=== PATIENT | female | born 1995 | race Caucasian/White ===

== ENCOUNTER 2017-05-21 07:42 | Inpatient (IN) | payer OTHER ==
[~2017-05-21] VITALS: Ht 167.6 cm; Wt 77.3 kg
[2017-05-21] MEDS ORDERED: OXYTOCIN 30U/ 0.9% NaCL 500ML 500 ML IV PRN (15:32)
[2017-05-21] MEDS ORDERED: OXYTOCIN 30U/ 0.9% NaCL 500ML 500 ML IV ONE (15:32)
[2017-05-21] MEDS ORDERED: D5%-LACTATED RINGERS 1,000 ML IV SCH (15:32)
[2017-05-21 15:37] VITALS: BP 126/76
[2017-05-21] MEDS ORDERED: CALCIUM CARBONATE 500 MG TAB.CHEW PO PRN (16:00)
[2017-05-21] MEDS ORDERED: FENTANYL PF 100 MCG/2ML IVPush PRN (16:00)
[2017-05-21] MEDS ORDERED: ONDANSETRON 2MG/ML, 2ML IVPush PRN (16:00)
[2017-05-21] MEDS ORDERED: PLEASE ENTER HEIGHT AND WEIGHT MC SCH (16:00)
[2017-05-21] MEDS ORDERED: FENTANYL PF 100 MCG/2ML IV PRN (16:00)
[2017-05-21] MEDS ORDERED: PREN1TAB10 PO (16:01)
[2017-05-21] MEDS ORDERED: LEVO50TA5 PO (16:01)
[2017-05-21 16:03] LABS: HEMATOCRIT 28.6 % (34.6-47.8); HEMOGLOBIN 9.4 g/dL (11.7-16.4); WHITE BLOOD COUNT 9.7 x10^3/uL (3.4-10)
[2017-05-21] MEDS ORDERED: OXYTOCIN 30U/ 0.9% NaCL 500ML 500 ML ONE ×2 (16:03→22:14)
[2017-05-21] MEDS ORDERED: NEWBORN KIT ONE (16:03)
[2017-05-21] MEDS ORDERED: LIDOCAINE 1%, 20ML ONE (16:03)
[2017-05-21] MEDS ORDERED: MISOPROSTOL 200 MCG TABLET ONE (16:03)
[2017-05-21] MEDS: LACTATED RINGERS 1,000 ML IV SCH ×2 (16:23→22:17)
[2017-05-21] MEDS ORDERED: FENTANYL PF 100 MCG/2ML ONE (19:47)
[2017-05-21] MEDS ORDERED: FENTANYL/BUPIV./NS/PF 250 ML EPIDCONT ONE (19:48)
[2017-05-21] MEDS ORDERED: BUPIVACAINE 0.25% ONE (19:48)
[2017-05-21] MEDS ORDERED: LIDOCAINE/PF 1.5%-EPI 1:200K, 30ML ONE (19:52)
[2017-05-21] MEDS ORDERED: TERBUTALINE 1 MG/ML, 1ML ONE (21:03)
[2017-05-21] MEDS: OXYTOCIN 30U/ 0.9% NaCL 500ML 500 ML IV SCH (22:17)
[2017-05-21] MEDS ORDERED: OXYcodone/APAP 5/325MG TABLET PO PRN (22:30)
[2017-05-21] MEDS ORDERED: ONDANSETRON 2MG/ML, 2ML IV PRN (22:30)
[2017-05-21] MEDS ORDERED: MISOPROSTOL 200 MCG TABLET PR PRN (22:30)
[2017-05-21] MEDS ORDERED: IBUPROFEN 600 MG TABLET ONE (22:49)
[2017-05-21] MEDS ORDERED: OXYcodone/APAP 5/325MG TABLET ONE (22:49)
[2017-05-21] MEDS: IBUPROFEN 600 MG TABLET PO PRN (23:01)
[2017-05-22 00:35] VITALS: BP 125/73
[2017-05-22] MEDS: DOCUSATE 100 MG CAPSULE PO PRN ×2 (01:27→07:46)
[2017-05-22] MEDS: OXYcodone/APAP 5/325MG TABLET PO PRN ×4 (03:40→20:37)
[2017-05-22 05:10] VITALS: BP 126/71
[2017-05-22 05:40] LABS: HEMATOCRIT 24.2 % (34.6-47.8); HEMOGLOBIN 7.9 g/dL (11.7-16.4); WHITE BLOOD COUNT 10.2 x10^3/uL (3.4-10)
[2017-05-22 07:34] VITALS: BP 111/69
[2017-05-22] MEDS: IBUPROFEN 600 MG TABLET PO PRN ×3 (07:46→20:37)
[2017-05-22] MEDS: OXYTOCIN 30U/ 0.9% NaCL 500ML 500 ML IV SCH (08:04)
[2017-05-22] MEDS: PRENATAL VIT/IRON/FA 1 EACH TABLET PO SCH (09:00)
[2017-05-22 11:43] VITALS: BP 109/69
[2017-05-22 20:00] VITALS: BP 107/75
[2017-05-23] MEDS: OXYcodone/APAP 5/325MG TABLET PO PRN ×2 (02:12→10:54)
[2017-05-23 07:25] VITALS: BP 112/71
[2017-05-23] MEDS: PRENATAL VIT/IRON/FA 1 EACH TABLET PO SCH (07:35)
[2017-05-23] MEDS: DOCUSATE 100 MG CAPSULE PO PRN (07:36)
[2017-05-23] MEDS ORDERED: FERROUS SULFATE 325 MG TABLET PO SCH (09:00)
[2017-05-23] MEDS: IBUPROFEN 600 MG TABLET PO PRN (10:54)
[2017-05-23] MEDS ORDERED: IBUP-1222 PO (11:56)
[2017-05-23] MEDS ORDERED: FERR325T23 PO (11:57)
[2017-05-23] MEDS ORDERED: OXYC-302 PO (11:57)
== END 2017-05-23 12:38 | disposition home or self-care (01) | DRG 775 ==
LOC: LDIP 14:06 → 2NW 05-22 00:21
PROVIDERS: ADMIT Obstetrics & Gynecology Gynecology; ATTEND Obstetrics & Gynecology Gynecology
PROC: 10E0XZZ Delivery of Products of Conception, External Approach (ICD-10-PCS; principal; 2017-05-21)
PROC: 0KQM0ZZ Repair Perineum Muscle, Open Approach (ICD-10-PCS; 2017-05-21)
PROC: 10907ZC Drainage of Amniotic Fluid, Therapeutic from Products of Conception, Via Natural or Artificial Opening (ICD-10-PCS; 2017-05-21)
PROC: 3E0P3VZ Introduction of Hormone into Female Reproductive, Percutaneous Approach (ICD-10-PCS; 2017-05-21)
PROC: 3E0R3BZ Introduction of Anesthetic Agent into Spinal Canal, Percutaneous Approach (ICD-10-PCS; 2017-05-21)
PROC: 00HU33Z Insertion of Infusion Device into Spinal Canal, Percutaneous Approach (ICD-10-PCS; 2017-05-21)
PROC: 0W8NXZZ Division of Female Perineum, External Approach (ICD-10-PCS; 2017-05-21)
DX: O76 Abnormality in fetal heart rate and rhythm complicating labor and delivery (principal); D62 Acute posthemorrhagic anemia; Z37.0 Single live birth; Z3A.39 39 weeks gestation of pregnancy; Z82.49 Family history of ischemic heart disease and other diseases of the circulatory system; O90.81 Anemia of the puerperium; O70.1 Second degree perineal laceration during delivery
CPT/HCPCS: 36415; 85025; 86850; 86900; J3010; J3490; J2590; J7120